=== PATIENT | male | born 1995 | race African-American/Black ===

== ENCOUNTER 2020-02-21 14:06 | Emergency (ER) | payer OTHER ==
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
[2020-02-21 16:10] VITALS: BP 150/66
== END 2020-02-21 16:10 | disposition home or self-care (01) ==
LOC: ED 14:06
DX: F41.9 Anxiety disorder, unspecified (principal)
CPT/HCPCS: 99282; 99283

== ENCOUNTER 2020-02-23 13:44 | Emergency (ER) | payer OTHER ==
--- NOTE | 2020-02-23 14:11 | ED Physician Documentation ---
PD HPI BACK PAIN - Stated complaint Stated Complaint: NECK/BACK PX - Chief complaint Chief Complaint: Back Pain - History obtained from History obtained from: Patient - Additional information Additional information: About 2 weeks ago he was going down some stairs and slipped, hit his back and tailbone on the stair going down. Persistent low back pain and neck pain. Today had a brief electric shock pain down the right thigh, lasted seconds. No bowel or bladder dysfunction. No weakness, numbness, tingling. Review of Systems Constitutional: denies: Fever, Chills Throat: reports: Reviewed and negative Cardiac: reports: Reviewed and negative Respiratory: reports: Reviewed and negative PD PAST MEDICAL HISTORY - Past Medical History Psych: Depression, Anxiety - Past Surgical History Past Surgical History: Yes Ortho: Other - Present Medications Home Medications: Ambulatory Orders Medication Instructions Recorded Confirmed LORazepam [Ativan] 1 mg PO Q6HR PRN #12 tablet 02/21/20 Cyclobenzaprine [Flexeril] 10 mg PO TID PRN #14 tablet 02/23/20 Ibuprofen [Motrin] 800 mg PO Q8H PRN #30 tablet 02/23/20 - Allergies Allergies/Adverse Reactions: Allergies Allergy/AdvReac Type Severity Reaction Status Date / Time No Known Drug Allergies Allergy Verified 02/23/20 14:06 - Social History Does the pt smoke?: No Smoking Status: Never smoker Does the pt drink ETOH?: Yes Does the pt have substance abuse?: No - Immunizations Immunizations are current?: Yes - POLST Patient has POLST: No PD ED PE NORMAL - Vitals Vital signs reviewed: Yes - General General: Alert and oriented X 3, No acute distress - Abdomen Abdomen: Soft, Non tender - Back Back: No spinal TTP (Lumbar and cervical spines are nontender.), Other (The patient has equal and normal Achilles and patellar reflexes bilaterally. Normal sensation in all areas of the legs. Patient denies saddle anesthesia. Normal strength in flexion-extension at the ankles, knees, and flexion of the hips.) - Neuro Neuro: Alert and oriented X 3, Normal speech Results - Vitals Vitals: Vital Signs - 24 hr 02/23/20 02/23/20 14:01 15:40 Temperature 37.4 C Heart Rate 101 H 72 Respiratory 16 Rate Blood Pressure 139/83 H 136/63 H O2 Saturation 96 99 Oxygen O2 Source Room air - Rads (name of study) X-rays of the cervical and lumbar spine Radiology: EMP read contemporaneously (Straightening of the cervical lordosis, otherwise negative) PD MEDICAL DECISION MAKING - ED course ED course: 25-year-old gentleman with 2 weeks of neck and back pain after a fall, plain films negative. Examination unremarkable. Departure - Departure Disposition: 01 Home, Self Care Clinical Impression: Neck sprain Qualifiers: Encounter type: initial encounter Qualified Code(s): S13.9XXA - Sprain of joints and ligaments of unspecified parts of neck, initial encounter Back strain Qualifiers: Encounter type: initial encounter Qualified Code(s): S39.012A - Strain of m uscle, fascia and tendon of lower back, initial encounter Condition: Good Record reviewed to determine appropriate education?: Yes Instructions: ED Sprain Strain Lumbar Prescriptions: Cyclobenzaprine [Flexeril] 10 mg PO TID PRN #14 tablet PRN Reason: Spasms Ibuprofen [Motrin] 800 mg PO Q8H PRN #30 tablet PRN Reason: PAIN &/OR FEVER Comments: Do not drink or drive while taking prescription muscle relaxers. You can use heat and gentle stretching as well. Return for new or worsening symptoms. [place]. Discharge Date/Time: 02/23/20 15:40
--- NOTE | 2020-02-23 15:24 | XRAY Report ---
PROCEDURE: Cervical Spine 2 View INDICATIONS: fall, back pain, neck pain TECHNIQUE: 4 view(s) of the cervical spine were acquired. COMPARISON: None. FINDINGS: Bones: No fractures or dislocations to the T1 level. The lateral masses of C1 appear intact on the odontoid view. No suspicious bony lesions. Straightening of normal cervical lordosis. No acute comp ression fractures. Soft tissues: No prevertebral soft tissue swelling. IMPRESSION: Cervical spine without acute fracture. Straightening of cervical lordosis likely related to positioning and/or concurrent muscle spasms. Reviewed by: Neto Schultz MD on 02/23/2020 3:23 PM PDT Approved by: Neto Schultz MD on 02/23/2020 3:23 PM PDT Station ID: [id number]
--- NOTE | 2020-02-23 15:25 | XRAY Report ---
PROCEDURE: Lumbar Spine 2 View INDICATIONS: fall, back pain, neck pain TECHNIQUE: 3 views of the lumbar spine were acquired. COMPARISON: None. FINDINGS: Bones: 5 [id number] vertebrae are present. There is normal bony alignment. No vertebral body compression fractures. No suspicious bony lesions. Soft tissues: Overlying bowel gas pattern is normal. No suspicious soft tissue calcifications. IMPRESSION: Lumbar spine without acute fracture or malalignment. No significant degenerative change. Reviewed by: Neto Schultz MD on 02/23/2020 3:24 PM PDT Approved by: Neto Schultz MD on 02/23/2020 3:24 PM PDT Station ID: [id number]
[2020-02-23 15:41] VITALS: BP 136/63
== END 2020-02-23 15:40 | disposition home or self-care (01) ==
LOC: ED 13:44
DX: S13.9XXA Sprain of joints and ligaments of unspecified parts of neck, initial encounter (principal); S39.012A Strain of muscle, fascia and tendon of lower back, initial encounter; W10.9XXA Fall (on) (from) unspecified stairs and steps, initial encounter
CPT/HCPCS: 72040; 72100; 99283

== ENCOUNTER 2020-03-01 18:05 | Emergency (ER) | payer OTHER ==
--- NOTE | 2020-03-01 18:44 | ED Physician Documentation ---
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 Worse with movement, better with rest. States was running today and the pain increased. Came in for evaluation. Has never been evaluated for this before. Has not seen his PCM. [place] Occasionally takes Motrin. No fall. No trauma. Review of Systems Constitutional: denies: Fever, Chills GI: denies: Nausea, Vomiting, Diarrhea Skin: denies: Rash Musculoskeletal: denies: Neck pain, Back pain Neurologic: denies: Headache PD PAST MEDICAL HISTORY - Past Medical History Past Medical History: Yes Psych: Depression, Anxiety - Past Surgical History Past Surgical History: Yes Ortho: Other - Present Medications Home Medications: Ambulatory Orders Medication Instructions Recorded Confirmed Cyclobenzaprine [Flexeril] 10 mg PO TID PRN #14 tablet 02/23/20 Meloxicam [Mobic] 7.5 mg PO BID PRN #20 tablet 03/01/20 - Allergies Allergies/Adverse Reactions: Allergies Allergy/AdvReac Type Severity Reaction Status Date / Time No Known Drug Allergies Allergy Verified 03/01/20 18:35 - Social History Does the pt smoke?: No Smoking Status: Never smoker Does the pt drink ETOH?: Yes Does the pt have substance abuse?: No - Immunizations Immunizations are current?: Yes - POLST Patient has POLST: No PD ED PE NORMAL - Vitals Vital signs reviewed: Yes - General General: Alert and oriented X 3, No acute distress - HEENT HEENT: Moist mucous membranes - Derm Derm: Warm and dry - Extremities Extremities: Other (No tenderness about the right knee. No swelling. No effusion. Neurovascular intact. ACL, MCL, PCL, LCL intact.) - Neuro Neuro: Alert and oriented X 3 Results - Vitals Vitals: Vital Signs - 24 hr 03/01/20 03/01/20 18:30 18:57 Temperature 37 C 36.2 C L Heart Rate 82 84 Respiratory 16 20 Rate Blood Pressure 145/74 H 142/66 H O2 Saturation 99 100 Oxygen O2 Source Room air PD MEDICAL DECISION MAKING - ED course Complexity details: considered differential, d/w patient ED course: No significant abnormalities on examination of the right knee. Ambulating well. Will prescribe meloxicam for home and have him follow-up with his PCM. Possible meniscus injury? No acute abnormality at this time. No indication for x-rays currently. He states he has had x-rays on this knee before. Patient counseled regarding signs and symptoms for which I believe and urgent re- evaluation would be necessary. Patient with good understanding of and agreement to plan and is comfortable going home at this time This document was made in part using voice recognition software. While efforts are made to proofread this document, sound alike and grammatical errors may occur. Departure - Departure Disposition: Home, Self Care Clinical Impression: Knee pain, right Qualifiers: Chronicity: chronic Qualified Code(s): M25.561 - Pain in right knee Condition: Good Instructions: ED Meniscal Injury Knee Poss, ED Knee Pain [facility] Follow-Up: BAILEY Lopezshaista Gómez [Provider Group] Prescriptions: Meloxicam [Mobic] 7.5 mg PO BID PRN #20 tablet PRN Reason: Pain Comments: [place]. They may want to perform an MRI or have you go to physical therapy. You may want to try a neoprene brace as well as ice may help support your knee. Discharge Date/Time: 03/01/20 18:59
[2020-03-01 18:58] VITALS: BP 142/66
== END 2020-03-01 18:59 | disposition home or self-care (01) ==
LOC: ED 18:05
DX: M25.561 Pain in right knee (principal)
CPT/HCPCS: 99282; 99284